=== PATIENT | male | born 1960 | race Caucasian/White ===

== ENCOUNTER 2019-10-01 22:07 | Emergency (ER) | payer MEDICAID ==
[~2019-10-01] VITALS: Ht 172.7 cm; Wt 82.0 kg
[2019-10-02] MEDS ORDERED: ACETAMINOPHEN 650MG/20.3ML UDC PO ONE (00:15)
[2019-10-02 04:57] VITALS: BP 138/87
== END 2019-10-02 06:31 | disposition home or self-care (01) ==
LOC: ER 22:07 → EDBD 22:07 → ER 10-02 06:31
DX: F10.229 Alcohol dependence with intoxication, unspecified (principal); Y90.0 Blood alcohol level of less than 20 mg/100 ml
CPT/HCPCS: 99283